=== PATIENT | female | born 2000 | race Two or more races ===

== ENCOUNTER 2018-12-25 17:23 | Emergency (ER) | payer BC ==
--- NOTE | 2018-12-25 17:28 | UC ---
Skin Complaint HPI - HPI Summary HPI Summary: 18 yo female presents with hives. She tells me that about 3 weeks ago she developed red and itchy hives to her arms, chest, and legs. These resolved with benadryl and antihistamine cream, but since that time every 2-3 days she will get an eruption or two on her arms or legs that is very itchy. Usually goes away in 3-4 days, but then just comes back again. She is not allergic to anything that she knows of and denies new soaps, perfumes, detergents, or travel. Feels well otherwise and denies recent illness, fever, chills, sore throat, abdominal pain, n/v. No SOB or difficulty breathing - History of Current Complaint Time Seen by Provider: 12/25/18 17:28 Stated Complaint: RASH Hx Obtained From: Patient Onset/Duration: Gradual Onset Onset Severity: Mild Current Severity: Mild Pain Intensity: 2 Pain Scale Used: 0-10 Numeric - Allergy/Home Medications Allergies/Adverse Reactions: Allergies Allergy/AdvReac Type Severity Reaction Status Date / Time No Known Allergies Allergy Verified 12/25/18 17:42 PMH/Surg Hx/FS Hx/Imm Hx - Additional Past Medical History Additional PMH: None - Surgical History Surgical History: None - Family History Known Family History: Positive: None - Social History Occupation: Student Lives: Dormitory/Roommates Alcohol Use: Occasionally Substance Use Type: None Smoking Status (MU): Never Smoked Tobacco Review of Systems All Other Systems Reviewed And Are Negative: Yes Constitutional: Positive: Negative Skin: Positive: Other - Hives Eyes: Positive: Negative ENT: Positive: Negative Respiratory: Positive: Negative Cardiovascular: Positive: Negative Gastrointestinal: Positive: Negative Neurovascular: Positive: Negative Neurological: Positive: Negative Psychological: Positive: Negative Physical Exam - Summary Physical Exam Summary: GENERAL: NAD. WDWN. No pain distress. SKIN: Left wrist with two mildly erythematous wheals and left calf with similar appearing lesion. No abscess, open wound, streaking, or warmth. Itchy. HEENT: Head: AT/NC Eyes: EOM intact. Conjunctiva clear without inflammation or discharge. Ears: Hearing grossly normal. TMs intact, no bulging, erythema, or edema. Nose: Nasal mucosa pink and moist. NTTP maxillary and frontal sinus. Throat: Posterior oropharynx without exudates, erythema, or tonsillar enlargement. Uvula midline. NECK: Supple. Nontender. No lymphadenopathy. CHEST: CTAB. No r/r/w. No accessory muscle use. Breathing comfortably and in no distress. CV: RRR. Without m/r/g. Pulses intact. Cap refill <2seconds NEURO: Alert. PSYCH: Age appropriate behavior. Triage Information Reviewed: Yes Vital Signs: Vital Signs: Temp Pulse Resp BP Pulse Ox 99.4 F 83 16 121/82 98 12/25/18 17:37 12/25/18 17:37 12/25/18 17:37 12/25/18 17:37 12/25/18 17:37 Vital Signs Reviewed: Yes Course/Dx - Course Course Of Treatment: Urticaria. - Diagnoses Provider Diagnosis: Allergic urticaria Discharge - Sign-Out/Discharge Documenting (check all that apply): Patient Departure All imaging exams completed and their final reports reviewed: No Studies - Discharge Plan Condition: Stable Disposition: HOME Prescriptions: predniSONE TAB* [Deltasone 20 MG TAB*] 60 mg PO DAILY #15 tab Patient Education Materials: Urticaria (ED) Referrals: No Primary Care Phys,NOPCP [Primary Care Provider] - Additional Instructions: If you develop a fever, shortness of breath, chest pain, new or worsening symptoms - please call your PCP or go to the ED. - Billing Disposition and Condition Condition: STABLE Disposition: Home
[2018-12-25 17:42] VITALS: BP 121/82
== END 2018-12-25 17:45 | disposition home or self-care (01) ==
LOC: UCEAST 17:23
DX: L50.0 Allergic urticaria (principal)
CPT/HCPCS: 99212; G0463

== ENCOUNTER 2019-02-16 16:23 | Emergency (ER) | payer BC ==
[2019-02-16 16:40] VITALS: BP 98/70
--- NOTE | 2019-02-16 16:42 | UC ---
Throat Pain/Nasal Jong HPI - HPI Summary HPI Summary: 18 yo female presents with hoarse voice since last night. She tells me that she was feeling fine prior to last night, but then started losing her voice. Has persisted through today. Has a very mild sore throat. She has not taken anything OTC for her symptoms. Denies fever, chills, sinus symptoms, cough, rash. - History of Current Complaint Chief Complaint: UCGeneralIllness Stated Complaint: THROAT COMPLAINT Time Seen by Provider: 02/16/19 16:42 Hx Obtained From: Patient Hx Last Menstrual Period: 1 week Onset/Duration: Sudden Onset Severity: Mild Pain Intensity: 1 Pain Scale Used: 0-10 Numeric - Allergies/Home Medications Allergies/Adverse Reactions: Allergies Allergy/AdvReac Type Severity Reaction Status Date / Time No Known Allergies Allergy Verified 02/16/19 16:41 Home Medications: Home Medications Control* 1 tab PO DAILY 02/16/19 [History Confirmed 02/16/19] PMH/Surg Hx/FS Hx/Imm Hx - Additional Past Medical History Additional PMH: None - Surgical History Surgical History: None - Family History Known Family History: Positive: None - Social History Occupation: Student Lives: Dormitory/Roommates Alcohol Use: Occasionally Substance Use Type: None Smoking Status (MU): Never Smoked Tobacco Review of Systems All Other Systems Reviewed And Are Negative: Yes Constitutional: Positive: Negative Skin: Positive: Negative Eyes: Positive: Negative ENT: Positive: Other - Hoarse voice Respiratory: Positive: Negative Cardiovascular: Positive: Negative Neurological: Positive: Negative Psychological: Positive: Negative Physical Exam - Summary Physical Exam Summary: GENERAL: NAD. WDWN. No pain distress. SKIN: No rashes, sores, lesions, or open wounds. HEENT: Head: AT/NC Eyes: Conjunctiva clear without inflammation or discharge. Ears: Hearing grossly normal. TMs intact, no bulging, erythema, or edema. Nose: Nasal mucosa pink and moist. NTTP maxillary and frontal sinus. Throat: Posterior oropharynx without erythema. 2+ tonsillar enlargement. No exudates. Uvula midline. Hoarse voice. NECK: Supple. Nontender. No lymphadenopathy. CHEST: CTAB. No r/r/w. No accessory muscle use. Breathing comfortably and in no distress. CV: RRR. Without m/r/g. Pulses intact. Cap refill <2seconds NEURO: Alert. PSYCH: Age appropriate behavior. Triage Information Reviewed: Yes Vital Signs: Initial Vital Signs Temp 98.1 F 02/16/19 16:38 Pulse 76 02/16/19 16:38 Resp 16 02/16/19 16:38 BP 98/70 02/16/19 16:38 Pulse Ox 97 02/16/19 16:38 Vital Signs Reviewed: Yes Throat Pain/Nasal Course/Dx - Course Course Of Treatment: Suspect viral laryngitis. Advised to take tylenol/ibuprofen and try OTC cough drops for relief of discomfort. Suspect her symptoms will improve within a few days - Differential Dx/Diagnosis Provider Diagnosis: Laryngitis Discharge - Sign-Out/Discharge Documenting (check all that apply): Patient Departure All imaging exams completed and their final reports reviewed: No Studies - Discharge Plan Condition: Stable Disposition: HOME Patient Education Materials: Laryngitis (ED) Forms: *School Release Referrals: No Primary Care Phys,NOPCP [Primary Care Provider] - Additional Instructions: If you develop a fever, shortness of breath, chest pain, new or worsening symptoms - please call your PCP or go to the ED. Please rest your voice and continue taking the cough drops to relieve discomfort. I suspect your voice will improve in 2-3 days - Billing Disposition and Condition Condition: STABLE Disposition: Home - Attestation Statements Provider Attestation: Pt not examined by me. I was available for consult.
== END 2019-02-16 16:54 | disposition home or self-care (01) ==
LOC: UCEAST 16:23
DX: J04.0 Acute laryngitis (principal)
CPT/HCPCS: 99211; G0463